=== PATIENT | female | born 1995 | race African-American/Black ===

== ENCOUNTER 2018-11-05 18:50 | Emergency (ER) | payer OTHER ==
[~2018-11-05] VITALS: Ht 167.6 cm; Wt 57.2 kg
[2018-11-05] MEDS ORDERED: HYDREA500 MG PO (19:04)
--- NOTE | 2018-11-05 19:20 | NUR ---
ED Nurse Note: walked in to ED due to back pain since Sun. per pt, work at the [employer] and helped client. no actve bleeding. pt is able to ambulate. no visible injuries noted.
[2018-11-05] MEDS ORDERED: IBUPROFEN600 MG ORAL (19:44)
[2018-11-05] MEDS ORDERED: ROBAXIN-750750 MG PO (19:44)
[2018-11-05 19:53] VITALS: BP 114/64
[2018-11-05 19:57] VITALS: BP 114/64
--- NOTE | 2018-11-05 19:58 | NUR ---
ER DISCHARGE NOTE: Patient is cleared to be discharged per ERMD, pt is aox4, on room air, with stable vital signs. pt was given dc and prescription instructions, pt was able to verbalize understanding, pt id band and removed without complications. pt is able to ambulate with steady gait. pt took all belongings.
--- NOTE | 2018-11-05 20:54 | Emergency Room Report ---
History of Present Illness General Chief Complaint: Lower Back Pain or Injury Source: Patient Present Illness HPI 23-year-old female presents to the emergency department complaining of 10 out of 10 in severity left-sided low back pain that had acute onset while helping a patient at work on Saturday. Patient reports pain is been progressive. Patient states that bending forward exacerbates her pain she states that rest slightly helps her pain. Patient denies previous injury to her back she denies other notable trauma or falls. She denies abdominal pain/tenderness, dysuria, urinary frequency or urgency. Denies numbness tingling or loss of sensation or gross motor movements of the extremities, incontinence of bowel or bladder. Denies CP, Palpitations, LOC, AMS, dizziness, Changes in Vision, weakness or a sudden severe headache. Denies recent spinal procedures or hx of neoplastic disease. 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 Review of Systems All Other Systems: negative except mentioned in HPI Physical Exam Vital Signs Date Time Temp Pulse Resp B/P (MAP) Pulse Ox O2 Delivery O2 Flow Rate FiO2 11/05/18 19:01 98.6 72 18 114/64 99 Room Air Sp02 EP Interpretation: reviewed, normal General Appearance: no apparent distress, alert, GCS 15, non-toxic Head: normocephalic, atraumatic Eyes: bilateral eye normal inspection, bilateral eye PERRL ENT: hearing grossly normal, normal voice Neck: full range of motion Respiratory: lungs clear, normal breath sounds, speaking full sentences Cardiovascular #1: regular rate, rhythm Gastrointestinal: non tender, soft Genitourinary: normal inspection, no CVA tenderness Musculoskeletal: back normal, gait/station normal, normal range of motion, tender - left lumbar paraspinal ttp, no midline spinous process tenderness, step -off or obvious deformity, no evidence of infection. Neurologic: alert, oriented x3, responsive, motor strength/tone normal, sensory intact, speech normal, grossly normal Psychiatric: judgement/insight normal Skin: normal color, no rash, warm/dry, well hydrated Lymphatic: no adenopathy Medical Decision Making PA Attestation Dr. Campo is my supervising Physician whom patient management has been discussed with. Diagnostic Impression: Primary Impression: Lumbosacral strain Qualified Codes: S39.012A - Strain of muscle, fascia and tendon of lower back , initial encounter ER Course 23-year-old female presents to the emergency department complaining of 10 out of 10 in severity left-sided low back pain that had acute onset while helping a patient at work on Saturday. Patient reports pain is been progressive. Patient states that bending forward exacerbates her pain she states that rest slightly helps her pain. Patient denies previous injury to her back she denies other notable trauma or falls. She denies abdominal pain/tenderness, dysuria, urinary frequency or urgency. Denies numbness tingling or loss of sensation or gross motor movements of the extremities, incontinence of bowel or bladder. Denies CP, Palpitations, LOC, AMS, dizziness, Changes in Vision, weakness or a sudden severe headache. Denies recent spinal procedures or hx of neoplastic disease. Ddx considered: epidural abscess, fracture, sprain/strain, meningitis, spinal chord injury, sciatica, cauda equina, Pyelonephritis, renal calculi just to name a few. Vital signs reviewed and are WNL during ED visit. Pt. is afebrile with no signs of infection No new symptoms, and denies recent trauma. No saddle anesthesia noted, Pt. denies incontinence Neurovascular is intact ROM is limited due to pain * Mild Tenderness to palpation to left sided paraspinal muscles of the lower back without midline tenderness. ORDERS: none warranted at this time. INTERVENTIONS: -Lidoderm TP -I do not identify an emergent condition at this time. With current presentation , pt. is stable for close outpatient follow up and conservative treatment. D/ w pt. to return promptly to ED with worsening or new symptoms.- Pt. verbalizes' understanding and agreement with proposed treatment plan. DISCHARGE: At this time pt. is stable for d/c to home. Will provide printed patient care instructions, and any necessary prescriptions. Care plan and follow up instructions have been discussed with the patient prior to discharge. Last Vital Signs Date Time Temp Pulse Resp B/P (MAP) Pulse Ox O2 Delivery O2 Flow Rate FiO2 11/05/18 19:57 98.6 69 18 114/64 99 Room Air Disposition: HOME, SELF-CARE Condition: Stable Scripts Ibuprofen* (MOTRIN*) 600 Mg Tablet 600 MG ORAL THREE TIMES A DAY, #30 TAB 0 Refills Prov: Kristie Johansen 11/05/18 Methocarbamol* (ROBAXIN-750*) 750 Mg Tablet 750 MG PO QID, #28 TAB 0 Refills Prov: Kristie Johansen 11/05/18 Departure Forms: Return to Work Return to Work Date: Nov 08, 2018 Work Restrictions: No Heavy Lifting Return to Full Activity: Nov 11, 2018 Patient Instructions: Lumbosacral Strain Additional Instructions: Take medications as directed. Follow up with a Primary Care Provider in 3-5 days, even if your symptoms have resolved. --Please review list of primary care clinics, if you do not already have a primary care provider Return sooner to ED if new symptoms occur, or current symptoms become worse. Do not drink alcohol, drive, or operate heavy machinery while taking Robaxin ( Muscle Relaxers) as this may cause drowsiness. - Please note that this Emergency Department Report was dictated using [employer] marketing executive technology software, occasionally this can lead to erroneous entry secondary to interpretation by the dictation equipment. Kristie Johansen Nov 05, 2018 20:54
== END 2018-11-05 19:59 | disposition home or self-care (01) ==
LOC: EMR 19:14
DX: S39.012A Strain of muscle, fascia and tendon of lower back, initial encounter (principal); X50.9XXA Other and unspecified overexertion or strenuous movements or postures, initial encounter; Y92.89 Other specified places as the place of occurrence of the external cause; Y99.0 Civilian activity done for income or pay
CPT/HCPCS: 99282